=== PATIENT | female | born 1980 | race Two or more races ===

== ENCOUNTER 2016-10-04 12:12 | Emergency (ER) | payer SELFPAY ==
--- NOTE | ~2016-10-04 | ER ---
PATIENT'S NAME: CELI VASQUEZ [facility] AGE: 35 Y [address] ROOM: [place] [id number] LOCATION: [facility] ADMIT DATE: 10/04/2016 ER/Outpatient Report DISCHARGE DATE: 10/04/2016 FAMILY PHYSICIAN: PHYSICIAN, NO ATTENDING PHYSICIAN: Jil Mena Time of Arrival: 1220 hours. Time of Exam: 1220 hours. CHIEF COMPLAINT: Dizziness. HISTORY OF PRESENT ILLNESS: The patient states that she has not felt well for the last 2 years, but for the last 2 days, she has had increased dizziness. She does not feel as though she is spinning or the room is spinning, she just has a funny feeling in the back of her head. Complains of it being like had numbness. She also has a numbness and tingling of her hands. Nauseated but no vomiting. Has not had any chest pain, no shortness of breath. No fever or chills. No cough, cold, congestion, or runny nose. She states that she has had a thyroid problem in the past, but is not currently on any medicine. ALLERGIES: PENICILLIN. CURRENT MEDICATIONS: None. PAST MEDICAL HISTORY: Hypothyroidism and asthma. PAST SURGERIES: Negative. SOCIAL HISTORY: Denies use of tobacco, drugs, or alcohol. Just moved to [place] approximately a month ago. She speaks [place]. The [employer] and THERAV[employer]Se were used to interpret with the patient. REVIEW OF SYSTEMS: All negative other than those mentioned in the HPI. PHYSICAL EXAMINATION: VITAL SIGNS: She weighed 61.2 kg. Blood pressure is 129/79, pulse of 80, respirations 20, temperature of 97.6 tympanic, and O2 saturations 98% on room [facility]GE[facility] 35 Y [address] ROOM: [place], [place] [id number] LOCATION: [facility] ADMIT DATE: 10/04/2016 ER/Outpatient Report DISCHARGE DATE: 10/04/2016 FAMILY PHYSICIAN: PHYSICIAN, NO ATTENDING PHYSICIAN: Jil Mena air. GENERAL: She is awake, alert, and oriented x4. SKIN: [place], warm, and dry. RESPIRATIONS: Even and nonlabored. HEENT: Pupils are equal and reactive to light. Extraocular movement is intact. TMs are pearly [place]royo. Nasal is clear. Oropharynx is clear. NECK: Supple. No lymphadenopathy. No thyromegaly is noted. LUNGS: Lung sounds are clear throughout. HEART: Regular rate and rhythm. ABDOMEN: Soft, nondistended. Bowel sounds are present. NEUROLOGIC: The patient walked in with a steady even gait. LABORATORY DATA: CBC was within normal limits. Chem panel is within normal limits. Her free T4 was 0.8 with a TSH of 6.29. Serum is negative. CT of the head was completed, it was negative per the Radiology report. IMPRESSION: Hypothyroidism. PLAN: Home, rest, fluids. Prescription was written for levothyroxine. Encouraged her to make contact with the primary provider before the month of medications is over. She is to return to the ER if needed. See the primary provider in the next 2 or 3 days if her symptoms do not improve. She verbalized understanding. MILI LEE APRN FOR [facility] PEDRAZA/eugenio /[id number] d: 10/04/163 t: 10/12/16 1226, OUTPATIENT REPORT
[2016-10-04 12:48] LABS: BASOPHIL # 0.1 K/uL (0.0-0.2); EOSINOPHIL # 0.1 K/uL (0.0-0.5); EOSINOPHIL % 2.7 %; HEMATOCRIT 40.7 % (33.0-46.0); HEMOGLOBIN 14.1 g/dL (11.0-15.0); IMMATURE GRANULOCYTE % 0.2 %; LYMPHOCYTE # 1.8 K/uL (0.8-4.0); LYMPHOCYTE % 35.7 %; MCH 31.7 pg (27.0-34.0); MCHC 34.6 gm/dL (32.0-36.5); MCV 91.5 fl (83.0-98.0); MONOCYTE # 0.5 K/uL (0.0-1.0); MONOCYTE % 8.7 %; MPV 10.1 fl (9.4-12.4); NEUTROPHIL # (ANC) 2.7 K/uL (1.8-7.8); NEUTROPHIL % 51.7 %; NRBC % 0 /100WBC (0-0.00); PLATELET COUNT 177 K/uL (150-450); RBC 4.45 M/uL (3.50-5.50); RDW-CV 11.6 % (11.9-14.6); WBC 5.2 K/uL (4.0-11.0)
[2016-10-04 13:08] LABS: ALK PHOS 58 IU/L (33-138); ALT 31 IU/L (12-78); AST 17 IU/L (10-40); BLOOD UREA NITROGEN 10 mg/dL (6-24); CALCIUM 8.8 mg/dL (8.5-10.5); CHLORIDE 106 mMol/L (96-110); CO2 27 mMol/L (22-32); CREATININE 0.7 mg/dL (0.5-1.1); SODIUM 139 mMol/L (135-145); TOTAL BILIRUBIN 0.4 mg/dL (0.0-1.5); TOTAL PROTEIN 7.2 g/dL (6.0-8.4)
== END 2016-10-04 14:17 | disposition disaster alternative care site (69) ==
LOC: GMED 12:12
PROVIDERS: Nurse Practitioner Family
DX: E03.9 Hypothyroidism, unspecified (principal); J45.909 Unspecified asthma, uncomplicated; Z88.0 Allergy status to penicillin